=== PATIENT | male | born 1980 | race Caucasian/White ===

== ENCOUNTER 2018-03-13 11:21 | Emergency (ER) | payer OTHER ==
[~2018-03-13] VITALS: Ht 182.9 cm; Wt 88.5 kg
[~2018-03-13 11:21] MED LIST: FLONASE 0.05%50 MCG NASAL; KEFLEX500 MG PO; LYRICA 50 MG50 MG PO; PERCOCET 5-3251 EACH PO; PREDNISONE10 MG PO; TRAMADOL 50 MG50 MG PO
[2018-03-13] MEDS ORDERED: GABAPENTIN 100100 MG PO (11:32)
[2018-03-13] MEDS ORDERED: TRAMADOL 50 MG50 MG PO (11:33)
[2018-03-13 12:06] LABS: URINE BILIRUBIN NEGATIVE (Negative); URINE BLOOD 1+ (Negative); URINE CLARITY CLEAR; URINE COLOR YELLOW; URINE GLUCOSE-RANDOM NEGATIVE (Negative); URINE KETONES NEGATIVE (Negative); URINE LEUKOCYTES-REFLEX NEGATIVE (Negative); URINE NITRITE-REFLEX NEGATIVE (Negative); URINE PROTEIN NEGATIVE (Negative); URINE SPECIFIC GRAVITY 1.015 (1.005-1.030)
[2018-03-13 12:10] LABS: ABSOLUTE BASOPHILS 0.1 thou/uL (0.0-0.2); ABSOLUTE EOSINOPHILS 0.2 thou/uL (0.0-0.7); ABSOLUTE LYMPHOCYTES 2.2 thou/uL (0.8-5.3); ABSOLUTE MONOCYTES 0.6 thou/uL (0.0-1.2); ABSOLUTE NEUTROPHILS 3.5 thou/uL (1.6-8.1); BASOPHILS 1.4 %; EOSINOPHILS 2.5 %; HEMATOCRIT 45.8 % (42.0-52.0); MCH 25.5 pg (26.0-34.0); MCHC 32.8 g/dL (28.0-37.0); MCV 77.7 fL (80.0-100.0); MONOCYTES 8.8 %; MPV 8.1 fl. (7.2-11.1); NUCLEATED RBCS 0 /100WBC; PLATELET COUNT* 339 thou/uL (150-400); POLYS 53.3 %; RDW-CV 14.8 % (10.5-14.5); WBC 6.6 thou/uL (4.0-11.0)
[2018-03-13 12:15] LABS: BACTERIA-REFLEX 1-9 Few /HPF (None Seen); CASTS None Seen /LPF (None Seen); MUCUS 0-3 Light strn/LPF (None Seen); SQUAMOUS 0-3 Few /LPF (0-3); URINE RBC 3-10 Few /HPF (0-2); URINE WBC-REFLEX 0-5 Rare /HPF (0-5)
[2018-03-13 12:16] LABS: CRYSTALS None Seen /LPF (None Seen)
[2018-03-13 12:18] LABS: CALCIUM 8.9 mg/dL (8.5-10.1); CREATININE 0.9 mg/dL (0.6-1.3); POTASSIUM 4.7 mmol/L (3.5-5.1)
[2018-03-13 12:22] LABS: TOTAL BILIRUBIN 0.5 mg/dL (<0.1-1.0); TOTAL PROTEIN 6.7 g/dL (6.4-8.2)
[2018-03-13 13:12] VITALS: BP 134/67
== END 2018-03-13 13:13 | disposition home or self-care (01) ==
LOC: M.ERS 11:21
PROVIDERS: Physician Assistant
DX: R10.32 Left lower quadrant pain (principal); M79.7 Fibromyalgia

== ENCOUNTER 2021-03-07 19:47 | Emergency (ER) | payer OTHER ==
[~2021-03-07] VITALS: Ht 182.9 cm; Wt 86.2 kg
[~2021-03-07 19:47] MED LIST changes: +GABAPENTIN 100100 MG PO
[2021-03-07] MEDS ORDERED: TRAMADOL 50 MG50 MG PO (19:52)
[2021-03-07 20:28] LABS: ABSOLUTE BASOPHILS 0.1 thou/uL (0.0-0.2); ABSOLUTE EOSINOPHILS 0.2 thou/uL (0.0-0.7); ABSOLUTE LYMPHOCYTES 2.7 thou/uL (0.8-5.3); ABSOLUTE MONOCYTES 0.6 thou/uL (0.0-1.2); ABSOLUTE NEUTROPHILS 5.4 thou/uL (1.6-8.1); EOSINOPHILS 2.5 %; HEMATOCRIT 48.8 % (42.0-52.0); HEMOGLOBIN 16.7 gm/dL (14.0-18.0); LYMPHOCYTES 30.2 %; MCH 27.7 pg (26.0-34.0); MCHC 34.2 g/dL (28.0-37.0); MCV 80.8 fL (80.0-100.0); MONOCYTES 6.5 %; MPV 8.1 fl. (7.2-11.1); NUCLEATED RBCS 0 /100WBC; PLATELET COUNT* 284 thou/uL (150-400); POLYS 59.8 %; RBC 6.05 mil/uL (4.50-6.00); RDW-CV 14.3 % (10.5-14.5)
[2021-03-07 20:34] LABS: CALCIUM 8.4 mg/dL (8.5-10.1); CREATININE 1.1 mg/dL (0.6-1.3); POTASSIUM 4.2 mmol/L (3.5-5.1)
[2021-03-07 20:45] LABS: ALBUMIN 3.7 g/dL (3.4-5.0); MAGNESIUM 1.8 mg/dL (1.8-2.4); TOTAL BILIRUBIN 0.5 mg/dL (<0.1-1.0)
[2021-03-07 22:14] LABS: URINE BILIRUBIN NEGATIVE (Negative); URINE BLOOD 1+ (Negative); URINE CLARITY CLEAR; URINE COLOR YELLOW; URINE GLUCOSE-RANDOM NEGATIVE (Negative); URINE KETONES NEGATIVE (Negative); URINE LEUKOCYTES-REFLEX NEGATIVE (Negative); URINE NITRITE-REFLEX NEGATIVE (Negative); URINE PROTEIN 1+ (Negative)
[2021-03-07 22:25] LABS: AMP/METHAMP POSITIVE (Negative); BARBITURATES Negative (Negative); BENZODIAZEPINES Negative (Negative); COCAINE Negative (Negative); METHADONE Negative (Negative); OPIATES Negative (Negative); PCP Negative (Negative); THC POSITIVE (Negative)
[2021-03-07 22:28] LABS: SQUAMOUS 0-3 Few /LPF (0-3); TRANSITIONAL EPITHEL CELL 0-3 Few /LPF (None Seen); URINE WBC-REFLEX 0-5 Rare /HPF (0-5)
[2021-03-07 22:29] LABS: AMORPHOUS PHOSPHATES Few /LPF (None Seen); FINE GRANULAR CASTS 0-3 Few /LPF (None Seen); MUCUS >6 Heavy strn/LPF (None Seen)
[2021-03-07 22:59] VITALS: BP 137/77
--- NOTE | 2021-03-10 15:21 | EKG ---
[place] [address] ELECTROCARDIOGRAM REPORT Name: JERMAINE GOLDEN Room: [facility]#: [id number] Admission: 03/07/21 Attend Phys: Discharge: 03/07/21 Date of : 80 Date of Service: 03/07/211954 Report #: [id number] THIS REPORT FOR: //name// [facility] ED Test Date: 2021-03-07 Test Time: 19:55:57 Pat Name: JERMAINE CHANTEL Department: Room: Gender: Technician [employer]: : 1980 Requested By: Tori Turk Order Number: [id number] MD: Tru Abreu Measurements Intervals [place] Rate: 98 P: 72 PA: 136 QRS: 29 QRSD: 88 T: 38 QT: 321 QTc: 410 Interpretive Statements Sinus rhythm Probable left atrial enlargement ST elev, probable normal early repol pattern No previous ECG available for comparison Electronically Signed On 03-10-2021 15:21:34 CDT by Tru Abreu [email or web address] <ELECTRONICALLY SIGNED> By: Tru Abreu MD, [facility] 03/10/21 1521 54 54 Tru Abreu MD, [facility] /EPI
== END 2021-03-07 23:00 | disposition home or self-care (01) ==
LOC: M.ERS 19:47
PROVIDERS: Emergency Medicine
DX: R07.89 Other chest pain (principal); F15.10 Other stimulant abuse, uncomplicated; M79.7 Fibromyalgia; Z79.899 Other long term (current) drug therapy